=== PATIENT | female | born 1975 ===

== ENCOUNTER → 2020-08-22 18:52 | Outpatient (REF) | payer BC, SELFPAY ==
[2020-08-22 18:39] LABS: HCT 44.1 % (36.0-46.0)
[2020-08-22 19:10] LABS: FREE T4 0.94 ng/dL (0.76-1.46); TSH 0.54 uIU/mL (0.36-3.74)
[2020-08-22 20:01] LABS: Vitamin B12 257 pg/mL (193-986)
== END ==
LOC: NCHCN 18:52
PROVIDERS: Visit Provider Physician Assistant
DX: D64.9 Anemia, unspecified (principal); E04.1 Nontoxic single thyroid nodule; I10 Essential (primary) hypertension
CPT/HCPCS: 82607; 84439; 84443; 85014; 85018

== ENCOUNTER 2025-05-10 18:23 | Outpatient (REF) | payer BC, SELFPAY ==
[2025-05-10 17:46] LABS: Abs Immature Grans 0.01 10^3/uL (0.0-0.06); HCT 41.8 % (36.0-46.0); HGB 13.7 g/dL (11.2-15.7); Immature Grans % 0.2 %; MCH 29.9 pg (27.0-33.0); MCHC 32.8 % (32.0-36.0); MCV 91 fL (80-95); MPV 11.2 fL (8.0-11.0); Platelet Count 292 10^3/uL (130-400); RBC 4.58 10^6/uL (3.93-5.22); RDW 12.6 % (11.7-14.6); RDW-SD 42.3 fL; WBC 6.43 10^3/uL (4.4-10.8)
[2025-05-10 17:54] LABS: Iron 130 ug/dL (50-170)
[2025-05-10 18:04] LABS: Hemoglobin A1C 5.1 % (<5.7)
[2025-05-10 18:22] LABS: Anion Gap 7.4 mmol/L (3-11); BUN 24 mg/dL (7-18); CO2 27.6 mmol/L (21.0-32.0); Calcium 8.5 mg/dL (8.5-10.1); Chloride 104 mmol/L (98-107); Estimated GFR 110.65 (mL/min/1.73m2); Glucose 92 mg/dL (74-106); Potassium 4.4 mmol/L (3.5-5.1); Sodium 139 mmol/L (136-145); TSH 0.38 uIU/mL (0.36-3.74); Vitamin B12 616 pg/mL (193-986); Vitamin D 25 Total 49 ng/mL (30-100)
== END 2025-05-10 18:24 | disposition home or self-care (01) ==
LOC: NCHCN 18:23
PROVIDERS: Visit Provider Physician Assistant
DX: Z13.1 Encounter for screening for diabetes mellitus (principal); E04.2 Nontoxic multinodular goiter; R53.82 Chronic fatigue, unspecified; E53.8 Deficiency of other specified B group vitamins; E55.9 Vitamin D deficiency, unspecified
CPT/HCPCS: 80048; 82306; 82607; 83036; 83540; 84439; 84443; 85025